=== PATIENT | female | born 1995 | race Hispanic/Latino ===

== ENCOUNTER 2019-05-21 03:43 | Emergency (ER) | payer OTHER ==
[~2019-05-21] VITALS: Ht 160 cm; Wt 88.5 kg
[2019-05-21] MEDS ORDERED: SODIUM CHLORIDE 0.9% 1000ML 1,000 ML IV STA (03:54)
[2019-05-21] MEDS ORDERED: PROMETHAZINE 25MG/ NS 50ML (IV) IV ONE (04:00)
[2019-05-21] MEDS ORDERED: KETOROLAC TROMETHAMINE 30 MG/ML VIAL IV ONE (04:00)
[2019-05-21] MEDS ORDERED: FAMOTIDINE 20 MG/2 ML VIAL IV ONE (04:00)
[2019-05-21] MEDS ORDERED: PROMETHAZINE HCL (IM) 25 MG/ML VIAL ONE (04:06)
[2019-05-21] MEDS ORDERED: SODIUM CHLORIDE 0.9% 1000ML 1,000 ML ONE (04:07)
[2019-05-21] MEDS ORDERED: SODIUM CHLORIDE 0.9% 50ML 50 ML ONE (04:15)
[2019-05-21] MEDS ORDERED: IOPAMIDOL 370 MG/ML 200 ML INFUS..BTL INJ ONE (04:15)
--- NOTE | 2019-05-21 05:15 | Diagnostic Imaging Report ---
EXAM: CT Abdomen and Pelvis WITH contrast INDICATION: Upper abdominal pain. ^[id number] ^[id number] COMPARISON: None. TECHNIQUE: Abdomen and pelvis were scanned utilizing a multidetector helical scanner from the lung base to the pubic symphysis after administration of IV contrast. Coronal and sagittal reformations were obtained. Dose modulation, iterative reconstruction, and/or weight based adjustment of the mA/kV was utilized to reduce the radiation dose to as low as reasonably achievable. Routine protocol was performed. Scan was performed when during portal venous phase. IV CONTRAST: 100 mL of Isovue-370 ORAL CONTRAST: None COMPLICATIONS: None RADIATION DOSE: Total DLP: 816.93 mGy*cm Estimated effective dose: (DLP x 0.015 x size factor) mSv CTDIvol has been reviewed. It is below the limits set by the Radiation Protocol Committee (RPC). FINDINGS: LINES and TUBES: None. LOWER THORAX: Unremarkable HEPATOBILIARY: No focal hepatic lesions. No biliary ductal dilation. GALLBLADDER: Questionable tiny dependent gallstones or sludge (series 301, image 39) No wall thickening. SPLEEN: No splenomegaly. PANCREAS: No focal masses or ductal dilatation. ADRENALS: No adrenal nodules KIDNEYS/URETERS: Kidneys enhance symmetrically. Atrophic right kidney. Multifocal areas of right renal and left superior pole cortical thinning/scarring. No hydronephrosis. Mildly distended bilateral renal fibrosis, right greater than left. Mild right urothelial enhancement. No renal stones. GI TRACT: No abnormal distention, wall thickening, or evidence of bowel obstruction. Appendix is normal. PELVIC ORGANS/BLADDER: Unremarkable. LYMPH NODES: No lymphadenopathy. VESSELS: Unremarkable. PERITONEUM / RETROPERITONEUM: No free air or fluid. BONES: Unremarkable. SOFT TISSUES: Unremarkable. IMPRESSION: 1. 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 Mild right urothelial enhancement. Urinary tract infection cannot be excluded. Otherwise, no acute inflammatory process in the abdomen/pelvis. 2. Left renal superior pole areas of cortical scarring. 3. Suspected cholelithiasis without CT evidence of cholecystitis. Signed by: Dr. Popeye Alcocer MD on 05/21/2019 5:12 AM
[2019-05-21 05:36] VITALS: BP 128/68
== END 2019-05-21 05:39 | disposition home or self-care (01) ==
LOC: FSED 03:43
DX: R10.11 Right upper quadrant pain (principal); R10.12 Left upper quadrant pain; N30.90 Cystitis, unspecified without hematuria; K80.70 Calculus of gallbladder and bile duct without cholecystitis without obstruction; K29.00 Acute gastritis without bleeding
CPT/HCPCS: 74177; 80053; 81003; 81025; 85025; 96374; 96375; 96376; 99284; J1885; J2550; J7030; Q9967

== ENCOUNTER 2020-02-14 09:10 | Emergency (ER) | payer OTHER ==
[~2020-02-14] VITALS: Ht 157.5 cm; Wt 81.6 kg
[2020-02-14] MEDS ORDERED: LIDOCAINE HCL 1% LOCAL INJ 20 ML VIAL ONE (09:41)
--- NOTE | 2020-02-14 09:41 | Emergency Department Note ---
History of Present Illnes History of Present Illness History of Present Illness This is a 24 year old female PRESENTS to the ED for retained FB in r earlobe. Historian: Patient Arrival Mode: Car Onset (how long ago): hour(s) (4) Severity: mild Onset quality: sudden Duration (how long): hour(s) (4) Timing of current episode: constant Progression: unchanged Chronicity: new Context: Denies recent illness, Denies recent surgery, Denies recent immobilization, Denies recent travel, Denies trauma/injury, Denies new medications, Denies hx of DVT/PE, Denies non-compliance w/ medications, Denies other Associated symptoms: Denies denies other symptoms, Denies confusion, Denies chest pain, Denies cough, Denies diaphoresis, Denies fever/chills, Denies headaches, Denies loss of appetite, Denies malaise, Denies nausea/vomiting, Denies rash, Denies seizure, Denies shortness of breath, Denies syncope, Denies weakness, Denies other Past Medical/Family History Physician Review I have reviewed the patient's past medical and family history. Any updates have been documented here. Past Medical History Recent Fever: No Clinical Suspicion of Infectio: No New/Unexplained Change in Ment: No Past Medical History: None Past Surgical History: None Social History Smoking Cessation: Never Smoker Alcohol Use: None Any Illegal Drug Use: No Other Last Tetanus: utd Review of Systems Review of Systems Constitutional: Reports no symptoms EENTM: Reports ear pain Cardiovascular: Reports no symptoms Respiratory: Reports no symptoms Gastrointestinal: Reports no symptoms Genitourinary: Reports no symptoms Musculoskeletal: Reports no symptoms Integumentary: Reports no symptoms Neurological: Reports no symptoms Psychological: Reports no symptoms Endocrine: Reports no symptoms Hematological/Lymphatic: Reports no symptoms Physical Exam Related Data Allergies: Coded Allergies: No Known Allergies (Unverified , 05/21/19) Vital signs reviewed: Yes Physical Exam CONSTITUTIONAL Constitutional: Present well-developed, Present well-nourished HENT HENT: Present normocephalic, Present atraumatic, Present oropharynx clear/moist, Present nose normal HENT L/R: Present left ext ear normal, Present right ext ear normal EYES Eyes: Reports PERRL, Reports conjunctivae normal NECK Neck: Present ROM normal PULMONARY Pulmonary: Present effort normal, Present breath sounds normal CARDIOVASCULAR Cardiovascular: Present regular rhythm, Present heart sounds normal, Present capillary refill normal, Present normal rate GASTROINTESTINAL Abdominal: Present soft, Present nontender, Present bowel sounds normal GENITOURINARY Genitourinary: Present exam deferred SKIN Skin: Present warm, Present dry MUSCULOSKELETAL Musculoskeletal: Present ROM normal NEUROLOGICAL Neurological: Present alert, Present oriented x 3, Present no gross motor or sensory deficits PSYCHOLOGICAL Psychological: Present mood/affect normal, Present judgement normal Procedures Foreign Body Site: right, other (ear lobe lobule) Description: other (nancy earring) Technique: manual removal Confirmed by: direct visualization Complications: none Post procedure exame: awake, alert Neurovascular: normal distal pulse Additional comments R ear lobule was numbed at the piercing site. Nancy earring head was pushed throught the ingress hole and removed without incident. Patient tolerated procedure well Assessment & Plan Medical Decision Making MDM Diff Dx : ear infection lobe, retained FB Assessment & Plan Final Impression: (1) Foreign body of right ear lobe Depart Disposition: HOME, SELF-CARE JOHN OLMSTEAD DO Feb 14, 2020 09:40
--- OUTSIDE RECORDS SUMMARY | 2020-02-14 09:51 | XMS REPORT | Continuity of Care Document ---
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 Role Phone [facility] [employer] Unavailable Un available Problems Problem Status Onset Date Classification Date Reported Comments Source ABD PAIN Active 07/17/2019 [facility] CHOLECYSTITIS Active 07/17/2019 [facility] Discharge Diagnosis: Chest pain at rest 02/02/2015 02/05/2015 [facility] ABDOMINAL PAIN Active 02/02/2015 [facility] Simple obesity (disorder) Acti ve Problem [facility] Group Medications Medication Details Route Status Patient Instructions Ordering Provider Order Date Source Hydralazine 10 mg, Route: IVP, Q20Min, Dosing Weight 81.818, kg, PRN Elevated BP, Start date: 07/18/19 16:59:00 PROJECT ADMINISTRATOR, Duration: 2 doses or times, Stop date: Limited # of times Inactive 07/18/2019 [facility] Labetalol 10 mg, Route: IVP, Q 5Min, Dosing Weight 81.818, kg, PRN Elevated BP, Start date: 07/18/19 16:59:00 PROJECT ADMINISTRATOR, Duration: 5 doses or times, Stop date: Limited # of times Inactive 07/18/2019 [facility] Metoprolol 1 mg, Route: IVP, Q 5Min, Dosing Weight 81.818, kg, PRN Other -See Comment, Start date: 07/18/19 16:59:00 PROJECT ADMINISTRATOR, Duration: 5 doses or times, Stop date: Limited # of times Inactive 07/18/2019 [facility] Ketorolac 30 mg, Route: IVP, O NCE, Dosing Weight 81.818, kg, Start date: 07/18/19 16:59:00 PROJECT ADMINISTRATOR, Stop date: 07/18/19 16:59:00 PROJECT ADMINISTRATOR Inactive 07/18/2019 [facility] Acetaminophen 1,000 mg, Route: IVPB, Drug form: INJ, ONCE, Dosing Weight 81.818, kg, PRN Pain Score 1-3, Start date: 07/18/19 16:59:00 PROJECT ADMINISTRATOR Inactive 07/18/2019 [facility] Oxycodone Hydrochloride 5 MG Oral Tablet 5 mg, Route: PO, Drug form: TAB, Q4H, Dosing Weight 81.818, kg, PRN Pain Score 4-6, Start date: 07/18/19 16:59:00 PROJECT ADMINISTRATOR, Duration: 30 day, Stop date: 08/17/19 16:58:00 PROJECT ADMINISTRATOR Inactive 07/18/2019 [facility] Morphine 2 mg, Route: IVP, Q5M in, Dosing Weight 81.818, kg, PRN Pain Score 4-6, Start date: 07/18/19 16:59:00 PROJECT ADMINISTRATOR, Duration: 5 doses or times, Stop date: Limited # of times Inactive 07/18/2019 [facility] Fentanyl 25 microgram, Route: IVP, Q5Min, Dosing Weight 81.818, kg, PRN Pain Score 4-6, Priority: Routine, Start date: 07/18/19 16:59:00 PROJECT ADMINISTRATOR, Duration: 4 doses or times, Stop date: Limited # of times Inactive 07/18/2019 [facility] Hydromorphone 0.5 mg, Route: I COTTON INSPECTOR, Q5Min, Dosing Weight 81.818, kg, PRN Pain Score 7-10, Start date: 07/18/19 16:59:00 PROJECT ADMINISTRATOR, Duration: 4 doses or times, Stop date: Limited # of times Inactive 07/18/2019 [facility] Flumazenil 0.2 mg, Route: IVP, PRN, Dosing Weight 81.818, kg, PRN Benzodiazepine Reversal, Initial dose, Start date: 07/18/19 16:59:00 PROJECT ADMINISTRATOR, Duration: 30 day, Stop date: 08/17/19 16:58:00 PROJECT ADMINISTRATOR Inactive 07/18/2019 [facility] Naloxone 0.4 mg, Route: IVP, Q 2MIN, Dosing Weight 81.818, kg, PRN Narcotic Reversal, Start date: 07/18/19 16:59:00 PROJECT ADMINISTRATOR, Duration: 8 doses or times, Stop date: Limited # of times Inactive 07/18/2019 [facility] Ondansetron 4 mg, Route: IVP, ONCE, Dosing Weight 81.818, kg, PRN Nausea & Vomiting, Start date: 07/18/19 16:59:00 PROJECT ADMINISTRATOR Inactive 07/18/2019 [facility] Calcium Chloride 0.0014 MEQ/ML / Potassi um Chloride 0.004 MEQ/ML / Sodium Chloride 0.103 MEQ/ML / Sodium Lactate 0.028 MEQ/ML Injectable Solution 1,000 mL, Rate: 75 ml/hr, Infuse over: 1 3.3 hr, Route: IV, Dosing Weight 81.818 kg, Total Volume: 1,000, Start date: 07/18/19 14:26:00 PROJECT ADMINISTRATOR, Duration: 1 day, Stop date: 07/19/19 14:25:00 PROJECT ADMINISTRATOR, 1.92, m2, 0 Inactive 07/18/2019 [facility] tramadol hydrochloride 50 MG Oral Tablet 100 mg = 2 tab, PO, Q8H, X 5 day, # 30 tab, 0 Refill(s) Active 07/18/2019 [facility] gabapentin 300 MG Oral Capsule 300 mg = 1 cap, PO, TID, # 42 cap, 0 Refill(s), Pharmacy: [facility] #[id number] Active 07/18/2019 [facility] Zosyn Notes: (Same as: Zosyn) Dosing based on Piperacillin component MEDICATION WASTE Product Size: 3375 mg Product Wasted: ___ mg Inactive 07/18/2019 [facility] piperacillin-tazobactam + Sodium Chlorid e 0.9% IV 100 mL Notes: (Same as: Zosyn) Dosing based on Piperacillin component MEDICATION WASTE Product Size: 3375 mg Product Wasted: ___ mg Inactive 07/18/2019 [facility] piperacillin-tazobactam + Sodium Chlorid e 0.9% IV 100 mL Notes: (Same as: Zosyn) Dosing based on Piperacillin component MEDICATION WASTE Product Size: 3375 mg Product Wasted: ___ mg Inactive 07/18/2019 [facility] Dextrose 50% Syringe (D50W) 12 .5 gm, 25 mL, Route: IVP, Drug Form: INJ, Dosing Weight 81.818, kg, PRN, PRN Blood Glucose Results, Start date: 07/17/19 18:24:00 PROJECT ADMINISTRATOR, Duration: 30 day, Stop date: 08/16/19 18:23:00 PROJECT ADMINISTRATOR, 0 No Longer Active 07/18/2019 [facility] Glucagon 1 mg, Route: IM, Drug form: PDR/INJ, PRN, Dosing Weight 81.818, kg, PRN Blood Glucose Results, Start date: 07/17/19 18:24:00 PROJECT ADMINISTRATOR, Duration: 30 day, Stop date: 08/16/19 18:23:00 PROJECT ADMINISTRATOR, 0 No Longer Active 07/18/2019 [facility] Ondansetron Notes: (Same as: Bulmaro tucker) MEDICATION WASTE Product Size: 4 mg Product Wasted: ___ mg No Longer Active 07/18/2019 [facility] Melatonin Notes: (Same as: Denita atonin) No Longer Active 07/18/2019 [facility] Acetaminophen Notes: Do not ex ceed 4 gm/day. (Same as: Tylenol) No Longer Active 07/18/2019 [facility] Lactated Ringers IV 1,000 mL 1 ,000 mL, Rate: 75 ml/hr, Infuse over: 13.3 hr, Route: IV, Dosing Weight 81.818 kg, Total Volume: 1,000, Start date: 07/17/19 18:24:00 PROJECT ADMINISTRATOR, Duration: 30 day, Stop date: 08/16/19 18:23:00 PROJECT ADMINISTRATOR, 1.92, m2, 0 No Longer Active 07/18/2019 [facility] Saline Flush 0.9% Notes: (Same as: BD Posiflush) No Longer Active 07/18/2019 [facility] Morphine Notes: (Same as:MORPh ine Sulfate) No Longer Active 07/18/2019 [facility] Piperacillin / tazobactam Note s: (Same as: Zosyn) Dosing based on Piperacillin component MEDICATION WASTE Product Size: 3375 mg Product Wasted: ___ mg Inactive 07/18/2019 [facility] Morphine Notes: (Same as:MORPh ine Sulfate) Inactive 07/17/2019 [facility] Sodium Chloride 0.9% (Bolus) IV 1,000 mL, 1000 ml/hr, Infuse Over: 1 hr, Route: IV, 1,000, Drug form: INJ, ONCE, Priority: STAT, Dosing Weight 81.818 kg, Start date: 07/17/19 17:32:00 PROJECT ADMINISTRATOR, Stop date: 07/17/19 17:32:00 PROJECT ADMINISTRATOR, 0 Inactive 07/17/2019 [facility] Ondansetron Notes: (Same as: Z ofran) MEDICATION WASTE Product Size: 4 mg Product Wasted: ___ mg Inactive 07/17/2019 [facility] Cyclobenzaprine hydrochloride 10 MG Oral Tablet [Flexeril] 10 mg, PO, TID, PRN Muscle Spasm, X 10 d ay, # 30 tab, 0 Refill(s) Active 02/03/2015 [facility] tramadol hydrochloride 50 MG Oral Tablet [Ultram] 50 mg = 1 tab, PO, Q6H, PRN pain, X 4 day, # 16 tab, 0 Refill(s) Active 02/03/2015 [facility] ibuprofen 800 mg oral tablet S pecial Instructions: Take with food Active 02/03/2015 [facility] Ibuprofen 800 mg, Route: PO, D rug form: TAB, ONCE, Dosing Weight 64.545, kg, Priority: STAT, Start date: 02/02/15 21:10:00, Stop date: 02/02/15 21:10:00 Inactive 02/03/2015 [facility] Acetaminophen 325 MG / Hydrocodone Peter trate 5 MG Oral Tablet 1 tab, Route: PO, Dosing Weight 64.545, kg, ONCE, STAT, Start date: 02/02/15 21:10:00, Stop date: 02/02/15 21:10:00 Inactive 02/03/2015 [facility] Allergies, Adverse Reactions, Alerts No Known Medication Allergies Immunizations No Data Provided for This Section Results Order Name Results Value Reference Range Date Interpretation Comments Source CHEM PANEL Glucose Lvl 93 70 - 99 07/17/2019 [facility] CHEM PANEL BUN 11 7 - 22 07/17/2019 [facility] CHEM PANEL Creatinine Lvl 1.01 0.50 - 1.40 07/17/2019 [facility] CHEM PANEL Sodium Lvl 138 135 - 145 07/17/2019 [facility] CHEM PANEL Potassium Lvl 3.7 3.5 - 5.1 07/17/2019 [facility] CHEM PANEL Chloride Lvl 105 95 - 109 07/17/2019 [facility] CHEM PANEL CO2 27 24 - 32 07/17/2019 [facility] CHEM PANEL Calcium Lvl 9.9 8.5 - 10.5 07/17/2019 [facility] CHEM PANEL Total Protein 8.4 6.4 - 8.4 07/17/2019 [facility] CHEM PANEL Albumin Lvl 4.6 3.5 - 5.0 07/17/2019 [facility] CHEM PANEL ALT 22 0 - 65 07/17/2019 [facility] CHEM PANEL AST 18 0 - 37 07/17/2019 [facility] CHEM PANEL Alk Phos 74 39 - 136 07/17/2019 [facility] CHEM PANEL Bili Total 0.4 0.2 - 1.3 07/17/2019 [facility] CHEM PANEL AGAP 9.7 10.0 - 20.0 07/17/2019 [facility] CHEM PANEL B/C Ratio 11 6 - 25 07/17/2019 [facility] CHEM PANEL Globulin 3.8 2.7 - 4.2 07/17/2019 [facility] CHEM PANEL A/G Ratio 1.2 0.7 - 1.6 07/17/2019 [facility] CHEM PANEL eGFR 78 07/17/2019 Result Comment: The eGFR is calculated using the CKD-EPI formula. In most young, healthy individuals the eGFR will be >90 mL/min/1.73m2. The eGFR declines with age. An eGFR of 60-89 may be normal in some populations, particularly the elderly, for whom the CKD-EPI formula has not been extensively validated. Use of the eGFR is not recommended in the following populations:

Individuals with unstable creatinine concentrations, including patients and those with serious co-morbid conditions.

Patients with extremes in muscle mass or diet.

The data above are obtained from the National Kidney Disease Education Program (NKDEP) which additionally recommends that when the eGFR is used in patients with extremes of body mass index for purposes of drug dosing, the eGFR should be multiplied by the estimated BMI. [facility] CHEM PANEL Lipase Lvl 67 73 - 393 07/17/2019 [facility] ENDOCRINOLOGY S Preg Ne gative *NA* (07/17/19 3:01 PM) Negative 07/17/2019 [facility] HEMATOLOGY WBC 14.4 3.7 - 10.4 07/17/2019 [facility] HEMATOLOGY RBC 4.45 4.20 - 5.40 07/17/2019 [facility] HEMATOLOGY Hgb 13.9 12.0 - 16.0 07/17/2019 [facility] HEMATOLOGY Hct 41.3 36.0 - 48.0 07/17/2019 [facility] HEMATOLOGY MCV 92.7 80.0 - 98.0 07/17/2019 [facility] HEMATOLOGY MCH 31.1 27.0 - 31.0 07/17/2019 [facility] HEMATOLOGY MCHC 33.6 32.0 - 36.0 07/17/2019 [facility] HEMATOLOGY RDW 13.1 11.5 - 14.5 07/17/2019 [facility] HEMATOLOGY Platelet 298 133 - 450 07/17/2019 [facility] HEMATOLOGY MPV 9.8 7.4 - 10.4 07/17/2019 [facility] HEMATOLOGY Segs 81.5 45.0 - 75.0 07/17/2019 [facility] HEMATOLOGY Lymphocytes 11.4 20.0 - 40.0 07/17/2019 [facility] HEMATOLOGY Monocytes 6.3 2.0 - 12.0 07/17/2019 [facility] HEMATOLOGY Eosinophils 0.5 0.0 - 4.0 07/17/2019 [facility] HEMATOLOGY Basophils 0.3 0.0 - 1.0 07/17/2019 [facility] HEMATOLOGY Neutrophils # 11.7 1.5 - 8.1 07/17/2019 [facility] HEMATOLOGY Lymphocytes # 1.6 1.0 - 5.5 07/17/2019 [facility] HEMATOLOGY Monocytes # 0.9 0.0 - 0.8 07/17/2019 [facility] HEMATOLOGY Eosinophils # 0.1 0.0 - 0.5 07/17/2019 [facility] URINE AND STOOL UA Turbidity Clear (07/17/19 3:01 PM) Clear 07/17/2019 [facility] URINE AND STOOL UA Spec Grav 1.006 <=1.030 07/17/2019 [facility] URINE AND STOOL UA pH 6.0 5.0 - 8.0 07/17/2019 [facility] URINE AND STOOL UA Protein Negative mg/dL Negative mg/dL 07/17/2019 [facility] URINE AND STOOL UA Glucose Negative mg/dL Negative mg/dL 07/17/2019 [facility] URINE AND STOOL UA Ketones Trace mg/dL Negative mg/dL 07/17/2019 [facility] URINE AND STOOL UA Bili Negative *NA* (07/17/19 3:01 PM) Negative 07/17/2019 [facility] URINE AND STOOL UA Blood Large *ABN* (07/17/19 3:01 PM) Negative 07/17/2019 [facility] URINE AND STOOL UA Nitrite Negative (07/17/19 3:01 PM) Negative 07/17/2019 [facility] URINE AND STOOL UA Leuk Est Negative (07/17/19 3:01 PM) Negative 07/17/2019 [facility] URINE AND STOOL UA Sq Epi Occasional /LPF Few /LPF 07/17/2019 [facility] URINE AND STOOL UA WBC <1 0 - 5 07/17/2019 [facility] URINE AND STOOL UA RBC 21 0 - 2 07/17/2019 [facility] URINE AND STOOL UA Bacteria Few /HPF None Seen /HPF 07/17/2019 [facility] URINE AND STOOL UA Color Ltyellow 07/17/2019 [facility] URINE AND STOOL UA Urobilinogen <=1.0 mg/dL 0.1 - 1.0 07/17/2019 [facility] Pathology Reports No Data Provided for This Section Diagnostic Reports Report Value Date Source Abdomen RUQ US PROCEDURE INFOR MATION: Exam: US Abdomen Limited, Right Upper Quadrant Exam date and time: 07/17/2019 4:04 PM Age: 24 years old Clinical indication: Pain; Additional info: /ruq pain TECHNIQUE: Imaging protocol: Real-time ultrasound of the abdomen with image documentation. Examination was focused on the right upper quadrant. COMPARISON: No relevant prior studies available. FINDINGS: LIVER: The visualized liver shows normal contour, size, and morphology with normal parenchymal echo texture. Common bile duct: The intrahepatic and extrahepatic bile ducts are not dilated with the common bile duct measuring 4.7 mm. The distal common bile duct is not well seen. GALLBLADDER: Echogenic, immobile, shadowing gallstone at the level of the gallbladder neck. Layering hyperechoic material within the gallbladder lumen, possibly sludge. Gallbladder wall is borderline thickened at 3 0.5 mm. No pericholecystic fluid. PANCREAS: The visualized portions of the pancreas appear unremarkable. RIGHT KIDNEY: The right kidney measures 9.2 x 4.3 x 3.9 cm and is unremarkable without hydronephrosis. INTRAPERITONEAL SPACE: There is no abdominal ascites. IMPRESSION: Immobile gallstone lodged at the level of the gallbladder neck. Also possible mild gallbladder sludge. Borderline gallbladder wall thickening. If further evaluation is clinically required, can obtain nuclear medicine HIDA scan. Adam Zimmer MD On 07/17/2019 17:03:51; [id number] 07/17/2019 [facility] Chest 2 views DX EXAM: Chest 2 views HISTORY: Chest pain. COMPARISON: None. TECHNIQUE: Frontal and lateral views of the chest. FINDINGS: Heart size is upper normal. The lungs are clear. No pleural effusion. SL: 12 02/02/2015 [facility] Consultation Notes No Data Provided for This Section Discharge Summaries No Data Provided for This Section History and Physicals No Data Provided for This Section Vital Signs Vital Sign Value Date Comments Source Systolic (mm Hg) 124 08/02/[facility] Diastolic (mm Hg) 85 08/02/2019 [facility] Heart Rate 99 08/02/2019 [facility] Temperature Oral (F) 98.2 F 08/02/2019 [facility] Height 157.48 cm 08/02/2019 [facility] Weight 82.784 08/02/2019 [facility] BMI Calculated 33.38 08/02/2019 [facility] Heart Rate 76 07/19/2019 [facility] Systolic (mm Hg) 132 07/19/2019 [facility] Diastolic (mm Hg) 86 07/19/2019 [facility] Heart Rate 84 07/19/2019 [facility] Systolic (mm Hg) 132 07/19/2019 [facility] Diastolic (mm Hg) 92 07/19/2019 [facility] Heart Rate 77 07/19/2019 [facility] Systolic (mm Hg) 128 07/19/2019 [facility] Diastolic (mm Hg) 82 07/19/2019 [facility] Respitory Rate 16 07/19/2019 [facility] Temperature Oral (F) 98.1 F 07/19/2019 [facility] Respitory Rate 16 07/18/2019 [facility] Respitory Rate 16 07/18/2019 [facility] Temperature Oral (F) 98.3 F 07/18/2019 [facility] Temperature Oral (F) 97.6 F 07/18/2019 [facility] Height 157.48 cm 07/17/2019 [facility] BMI Calculated 32.99 07/17/2019 [facility] Weight 81.818 07/17/2019 [facility] Heart Rate 53 02/03/2015 [facility] Temperature Oral (F) 97.8 F 02/03/2015 [facility] Systolic (mm Hg) 111 02/03/2015 [facility] Diastolic (mm Hg) 69 02/03/2015 [facility] Respitory Rate 17 02/03/2015 [facility] Diastolic (mm Hg) 75 02/03/2015 [facility] Systolic (mm Hg) 124 02/03/2015 [facility] Respitory Rate 18 02/03/2015 [facility] Heart Rate 71 02/03/2015 [facility] Temperature Oral (F) 98.2 F 02/03/2015 [facility] Weight 64.545 02/03/2015 [facility] BMI Calculated 26.03 02/03/2015 [facility] Height 157.48 cm 02/03/2015 [facility] Systolic (mm Hg) 131 02/03/2015 [facility] Diastolic (mm Hg) 80 02/03/2015 [facility] Heart Rate 74 02/03/2015 [facility] Respitory Rate 18 02/03/2015 [facility] Temperature Oral (F) 98.3 F 02/03/2015 [facility] Encounters Location Location Details Encounter Type Encounter Number Reason For Visit Attending Provider ADM Date DC Date Status Source [facility] [id number] Cyril Che 02/03/2015 02/03/2015 [facility] Observation [id number] Julia Alawadi 07/17/2019 07/19/2019 [facility] Outpatient [id number] Julia Alawadi 07/18/2019 Active [facility] Outpatient [id number] Julia Alawadi 08/02/2019 [facility] General Surgery [facility] [place] [facility] [id number] Julia Alawadi 08/02/2019 08/03/2019 [facility] Procedures Procedure Code Date Perfomer Comments Source Laparoscopic cholecystectomy 4 [id number] 07/21/2019 [facility] Assessment and Plan Assessment and Plan Date Source Extracted from:Title: [facility] Hospitalist Eduar robles Note Author: Jeannette Cunningham MD Date: 07/18/19 [facility] Hospitalist Progress Note Code Status: None Specified=FULL CODE RFC: Medical management Subjective: Pain controlled Plan for surgery later this evening Objective: Vitals and Temp: Vitals Tmp(F) Pulse BP RR SpO2 FIO2 07/18 11:28 98.3 115 126/78 17 100 --- 07/18 07:53 97.6 91 113/73 1 7 100 --- 07/18 02:56 97.7 102 103/67 16 97 --- 07/17 23:19 97.6 80 107/69 1 5 97 --- 07/17 19:08 97.7 72 115/75 1 6 97 --- 24 Hr Tmax: 98.3F (36.83c) at 07/18 11:2 8 Vital Signs are the last 5 in the past 48 hours. Physical Exam General: Awake, alert, oriented x 3, NAD HEENT: PERRLA, EOMI. Heart: RRR, normal S1, S2. No murmurs, rubs, gallops Lungs: Clear to auscultation bilaterally. Symmetric chest wall expansion. Abdomen: Soft, non-tender to palpation, non-distended. Bowel sound present in all 4 quadrants. Lines, Tubes, and Drains: 07/17/2019 18:24 Peripheral Lines: Antec ubital Left 20 gauge Over the needle catheter I&O Record In Out Bal 07/18 24hr Tot 100 0 100 07/17 24hr Tot 1200 0 1200 I/O Intake Output Balance 07/18/2019 7a-3p 80.00 0.00 80.00 As of 14:07 3p-11p 20.00 0.00 20.00 11p-7a 0.00 0.00 0.00 Totals 100.00 0.00 100.00 07/17/2019 7a-3p 0.00 0.00 0.00 3p-11p 1100.00 0.00 1100.00 11p-7a 100.00 0.00 100.00 Totals 1200.00 0.00 1200.00 07/16/2019 7a-3p 0.00 0.00 0.00 3p-11p 0.00 0.00 0.00 11p-7a 0.00 0.00 0.00 Totals 0.00 0.00 0.00 Medications (16) Active Scheduled Meds (1): 07/18/19 piperacillin-tazobactam + Sodiu m Chloride 0.9% IV 100 mL (Zosyn + Sodium Chloride 0.9% IV 100 mL) 3.375 gm IV [id number] 25 ml/hr Unscheduled Meds: None PRN Meds (8): 07/17/19 Dextrose 50% in Water IV (Dextr ose 50% Syringe (D50W)) 12.5 gm IVP PRN 07/17/19 Dextrose 50% in Water IV (Dextr ose 50% Syringe (D50W)) 25 gm IVP PRN 07/17/19 acetaminophen 650 mg PO Q4H 07/17/19 glucagon 1 mg IM PRN 07/17/19 melatonin 3 mg PO Bedtime 07/17/19 morphine Sulfate 2 mg IVP Q4H 07/17/19 ondansetron 4 mg IVP Q8H 07/17/19 sodium chloride (Saline Flush 0 .9%) 10 ml IVP PRN One Time Meds (6): 07/17/19 (Completed) Sodium Chloride 0. 9% IV (Sodium Chloride 0.9% (Bolus) IV) 1,000 mL IV ONCE 1000 ml/hr 07/17/19 (Completed) morphine Sulfate 4 mg IVP ONCE 07/17/19 (Completed) ondansetron 4 mg I COTTON INSPECTOR ONCE 07/17/19 (Deleted) piperacillin-tazobac justice + Sodium Chloride 0.9% IV 100 mL 3.375 gm IVPB ONCE 200 ml/hr 07/17/19 (Deleted) piperacillin-tazobac justice + Sodium Chloride 0.9% IV 100 mL 3.375 gm IVPB ONCE 200 ml/hr 07/17/19 (Completed) piperacillin-tazob actam + Sodium Chloride 0.9% IV 100 mL 3.375 gm IVPB ONCE 200 ml/hr Continuous Infusions (1): 07/17/19 Lactated Ringers Injection IV 1 ,000 mL (Lactated Ringers IV 1,000 mL) 1,000 mL 75 ml/hr Labs: Hct: 41.3 % (07/17/19 15:01:00) Hgb: 13.9 g/dL (07/17/19 15:01:00) MCH: 31.1 pg High (07/17/19 15:01:00) MCHC: 33.6 g/dL (07/17/19 15:01:00) MCV: 92.7 fL (07/17/19 15:01:00) MPV: 9.8 fL (07/17/19 15:01:00) Platelet: 298 K/CMM (07/17/19 15:01:00) RBC: 4.45 M/CMM (07/17/19 15:01:00) RDW: 13.1 % (07/17/19 15:01:00) WBC: 14.4 K/CMM High (07/17/19 15:01:00) CO2: 27 mEq/L (07/17/19 15:01:00) Chloride Lvl: 105 mEq/L (07/17/19 15:01:00) Sodium Lvl: 138 mEq/L (07/17/19 15:01:00) Glucose Lvl: 93 mg/dL (07/17/19 15:01:00) Calcium Lvl: 9.9 mg/dL (07/17/19 15:01:00) Potassium Lvl: 3.7 mEq/L (07/17/19 15:01:00) BUN: 11 mg/dL (07/17/19 15:01:00) AGAP: 9.7 mEq/L Low (07/17/19 15:01:00) Creatinine Lvl: 1.01 mg/dL (07/17/19 15:01:00) Imaging: Reviewed Assessment/Plan: 1. Acute cholecystitis Plan: -plan for surgery later today -cont pain control, fluids -intermittently tachycardic, likely 2/2 pain/anxiety -pt denies other medical problems Thank you for the consult, please call hospitalist with quesstions Jeannette Cunningham MD Hospitalist [facility] Extracted from:Title: Hospitalist Consult Note Author: Estephanie Yi MD Date: 07/17/19 24 yo F with obesity, cholelithiasis who presented to the ED withsevere upper abdominal pain that began last night. Acute cholecystitis - npo after midnight for surgical interv ention - will continue empiric zosyn - morphine and zofran prn, gentle IVF Thank you for this consult. Please call if you have any questions. We will continue to follow along with you. Estephanie Yi MD [facility] Hospitalist 07/19/2019 [facility] Plan of Care No Data Provided for This Section Social History Social History Date Source Social History TypeResponse Alcohol Never Substance Abuse Use: None. Smoking Status Never smoker; Exposure to Tobacco Smoke None; Cigarette Smoking Last 365 Days No; Reg Smoking Cessation Counseling No entered on: 07/17/19 07/18/2019 [facility] Social History TypeResponse Alcohol Never Employment/School Status: Employed. Substance Abuse Use: None. Smoking Status Never smoker; Exposure to Tobacco Smoke None; Cigarette Smoking Last 365 Days No; Reg Smoking Cessation Counseling No entered on: 08/02/19 07/18/2019 [facility] Family History No Data Provided for This Section Advance Directives No Data Provided for This Section Functional Status No Data Provided for This Section
--- OUTSIDE RECORDS SUMMARY | 2020-02-14 09:51 | XMS REPORT | Continuity of Care Document ---
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 Role Phone NO, PCP PCP Unavailable Julia Gonzalez Attphys Shara KEITA Attphys Unavailable Tobias Che Attphys [phone] Julia Gonzalez Admphys Payers Payer Name Policy Type Policy Number Effective Date Expiration Date Amie Shannon o [id number] 2018 00:00:00 [facility] Problems Condition Name Condition Details Condition Category Status Onset Date Resolution Date Last Treatment Date Treating Clinician Comments Source ABD PAIN ABD PAIN Active 07/17/2019 [facility] Active 2019-07-17 00:00:00 2019-07-17 18:48:00 [facility] CHOLECYSTITIS CHOL ECYSTITIS Active 07/17/2019 [facility] Active 2019-07-17 00:00:00 2019-07-18 17:23:00 [facility] ABDOMINAL PAIN ABDO MISAEL PAIN Active 02/02/2015 [facility] Active 2015-02-02 00:00:00 2015-02-02 21:55:00 [facility] Simple obesity (disorder) Simp le obesity (disorder) Active Problem 08/05/2019 [facility] Problem Active 2019-08-05 01:08:06 [facility] Discharge Diagnosis: Chest pain at rest Discharge Diagnosis: Chest pain at rest 02/02/2015 02/05/2015 [facility] Problem 2015-02-02 05:00:00 2015-02-05 07:41:15 2015-02-05 07:41:15 [facility] Allergies, Adverse Reactions, Alerts This patient has no known allergies or adverse reactions. Social History Social Habit Start Date Stop Date Quantity Comments Source Social History 2019-07-18 02:53:29 2019-07-18 02:53:29 [facility] Medications Ordered Medication Name Filled Medication Name Start Date Stop Da te Current Medication? Ordering Clinician Indication Dosage Frequency Signature (SIG) Comments Components Source Hydralazine 2019-07-18 22:59:00 No 10 mg, Route: IVP, Q20Min, Dosing Weight 81.818, kg, PRN Elevated BP, Start date: 07/18/19 16:59:00 [employer] DRAFTSPERSON, Duration: 2 doses or times, Stop date: Limited # of times [facility] Labetalol 2019-07-18 22:59:00 No 10 mg, Route: IVP, Q5Min, Dosing Weight 81.818, kg, PRN Elevated BP, Start date: 07/18/19 16:59:00 [employer] DES[employer] DRAFTSPERSON, Duration: 5 doses or times, Stop date: Limited # of times [facility] Metoprolol 2019-07-18 22:59:00 No 1 mg, Route: IVP, Q5Min, Dosing Weight 81.818, kg, PRN Other -See Comment, Start date: 07/18/19 16:59:00 [employer] ENG[employer]ERING DES[employer] DRAFTSPERSON, Duration: 5 doses or times, Stop date: Limited # of times [facility] Ketorolac 2019-07-18 22:59:00 No 30 mg, Route: IVP, ONCE, Dosing Weight 81.818, kg, Start date: 07/18/19 16:59:00 [employer] DES[employer] DRAFTSPERSON, Stop date: 07/18/19 16:59:00 [employer] ENGINEERING DESIGN DRAFTSPERSON [facility] Acetaminophen 2019-07-18 22:59:00 No 1,000 mg, Route: IVPB, Drug form: INJ, ONCE, Dosing Weight 81.818, kg, PRN Pain Score 1-3, Start date: 07/18/19 16:59:00 [employer] ENG[employer]ER[employer] DES[employer] DRAFTSPERSON [facility] Oxycodone Hydrochloride 5 MG Oral Tablet 2019-07-18 22:59:00 No 5 mg, Route: PO, Drug form: TAB, Q4H, Dosing Weight 81.818, kg, PRN Pain Score 4- 6, Start date: 07/18/19 16:59:00 [employer] ENGINEERING DESIGN DRAFTSPERSON, Duration: 30 day, Stop date: 08/17/19 16:58:00 [employer] ENGINEERING DESIGN DRAFTSPERSON [facility] Morphine 2019-07-18 22:59:00 No 2 mg, Route: IVP, Q5Min, Dosing Weight 81.818, kg, PRN Pain Score 4-6, Start date: 07/18/19 16:59:00 [employer] ENG[employer]ER[employer] DES[employer] DRAFTSPERSON, Duration: 5 doses or times, Stop date: Limited # of times [facility] Fentanyl 2019-07-18 22:59:00 No 25 microgram, Route: IVP, Q5Min, Dosing Weight 81.818, kg, PRN Pain Score 4-6, Priority: Routine, Start date: 07/18/19 16:59:00 [employer] ENG[employer]ER[employer] DESIGN DRAFTSPERSON, Duration: 4 doses or times, Stop date: Limited # of times [facility] Hydromorphone 2019-07-18 22:59:00 No 0.5 mg, Route: IVP, Q5Min, Dosing Weight 81.818, kg, PRN Pain Score 7-10, Start date: 07/18/19 16:59:00 [employer] ENGINEER[employer] DESIGN DRAFTSPERSON, Duration: 4 doses or times, Stop date: Limited # of times [facility] Flumazenil 2019-07-18 22:59:00 No 0.2 mg, Route: IVP, PRN, Dosing Weight 81.818, kg, PRN Benzodiazepine Reversal, Initial dose, Start date: 07/18/19 16:59:00 [employer] ENG[employer]ER[employer] DES[employer] DRAFTSPERSON, Duration: 30 day, Stop date: 08/17/19 16:58:00 [employer]IV[employer] ENGINEERING DESIGN DRAFTSPERSON [facility] Naloxone 2019-07-18 22:59:00 No 0.4 mg, Route: IVP, Q2MIN, Dosing Weight 81.818, kg, PRN Narcotic Reversal, Start date: 07/18/19 16:59:00 [employer] ENG[employer]ER[employer] DESIGN DRAFTSPERSON, Duration: 8 doses or times, Stop date: Limited # of times [facility] Ondansetron 2019-07-18 22:59:00 No 4 mg, Route: IVP, ONCE, Dosing Weight 81.818, kg, PRN Nausea & Vomiting, Start date: 07/18/19 16:59:00 [employer] ENG[employer]ER[employer] DES[employer] DRAFTSPERSON [facility] Calcium Chloride 0.0014 MEQ/ML / Potassi um Chloride 0.004 MEQ/ML / Sodium Chloride 0.103 MEQ/ML / Sodium Lactate 0.028 MEQ/ML Injectable Solution 2019-07-18 20:26:00 No 1,000 mL, Rate: 75 ml/hr, Infuse over: 13.3 hr, Route: IV, Dosing Weight 81.818 kg, Total Volume: 1,000, Start date: 07/18/19 14:26:00 [employer] ENG[employer]ER[employer] DES[employer] DRAFTSPERSON, Duration: 1 day, Stop date: 07/19/19 14:25:00 [employer] ENGINEERING DESIGN DRAFTSPERSON, 1.92, m2, 0 Chon Bustos tramadol hydrochloride 50 MG Oral Tablet 2019-07-18 17:42:00 Yes 100 mg = 2 tab, PO, Q8H, X 5 day, # 30 tab, 0 Refill(s) Chon Bustos gabapentin 300 MG Oral Capsule 2019-07-18 17:42:00 Yes 300 mg = 1 cap, PO, TID, # 42 cap, 0 Refill(s), Pharmacy: [id number] Chon Bustos Zosyn 2019-07-18 09:00:00 No Notes: (Same as: Zosyn) Dosing based on Piperacillin component MEDICATION WASTE Product Size: 3375 mg Product Wasted: ___ mg Chon Bustos piperacillin-tazobactam + Sodium Chloride 0.9% IV 100 mL 2019-07-18 01:18:00 No Notes: (Same a s: Zosyn) Dosing based on Piperacillin component MEDICATION WASTE Product Size: 3375 mg Product Wasted: ___ mg Chon Akash piperacillin-tazobactam + Sodium Chloride 0.9% IV 100 mL 2019-07-18 01:16:00 No Notes: (Same a s: Zosyn) Dosing based on Piperacillin component MEDICATION WASTE Product Size: 3375 mg Product Wasted: ___ mg Chon Bustos Dextrose 50% Syringe (D50W) 2019-07-18 00:24:00 No 12.5 gm, 25 mL, Route: IVP, Drug Form: INJ, Dosing Weight 81.818, kg, PRN, PRN Blood Glucose Results, Start date: 07/17/19 18:24:00 [employer] ENG[employer]ERING DESIGN DRAFTSPERSON, Duration: 30 day, Stop date: 08/16/19 18:23:00 [employer]IV[employer] ENGINEERING DESIGN DRAFTSPERSON, 0 Chon Aaron n Glucagon 2019-07-18 00:24:00 No 1 mg, Route: IM, Drug form: PDR/INJ, PRN, Dosing Weight 81.818, kg, PRN Blood Glucose Results, Start date: 07/17/19 18:24:00 [employer] ENGINEERING DESIGN DRAFTSPERSON, Duration: 30 day, Stop date: 08/16/19 18:23:00 CIVIL ENGINEERING DESIGN DRAFTSPERSON, 0 [facility] Ondansetron 2019-07-18 00:24:00 No Notes: (Same as: Zofran) MEDICATION WASTE Product Size: 4 mg Product Wasted: ___ mg [facility] Melatonin 2019-07-18 00:24:00 No Notes: (Sa me as: Melatonin) [facility] Acetaminophen 2019-07-18 00:24:00 No Notes: Do not exceed 4 gm/day. (Same as: Tylenol) [facility] Lactated Ringers IV 1,000 mL 2019-07-18 00:24:00 No 1,000 mL, Rate: 75 ml/hr, Infuse over: 13.3 hr, Route: IV, Dosing Weight 81.818 kg, Total Volume: 1,000, Start date: 07/17/19 18:24:00 CIV[employer] ENGINEERING DESIGN DRAFTSPERSON, Duration: 30 day, Stop date: 08/16/19 18:23:00 CIVIL ENGINEERING DESIGN DRAFTSPERSON, 1.92, m2, 0 [facility] [place] Saline Flush 0.9% 2019-07-18 00:24:00 No Notes: (Same as: BD Posiflush) [facility] Morphine 2019-07-18 00:24:00 No Not es: (Same as:MORPhine Sulfate) [facility] Piperacillin / tazobactam 2019-07-18 00:13:00 No Notes: (Same as: Zosyn) Dosing based on Piperacillin component MEDICATION WASTE Product Size: 3375 mg Product Wasted: ___ mg [facility] [place] Morphine 2019-07-17 23:32:00 No Not es: (Same as:MORPhine Sulfate) [facility] Sodium Chloride 0.9% (Bolus) IV 2019-07-17 23:32:00 No 1,000 mL, 1000 ml/hr, Infuse Over: 1 hr, Route: IV, 1,000, Drug form: INJ, ONCE, Priority: STAT, Dosing Weight 81.818 kg, Start date: 07/17/19 17:32:00 [employer] ENGINEERING DESIGN DRAFTSPERSON, Stop date: 07/17/19 17:32:00 CIVIL ENGINEERING DESIGN DRAFTSPERSON, 0 [facility] n Ondansetron 2019-07-17 23:32:00 No Notes: (Same as: Tl) MEDICATION WASTE Product Size: 4 mg Product Wasted: ___ mg [facility] Ak[address] Cyclobenzaprine hydrochloride 10 MG Oral Tablet [Flexeril] 2015-02-03 03:45:00 Yes 10 mg, PO, TID, PRN Muscle Spasm, X 10 day, # 30 tab, 0 Refill(s) [facility] Ak[address] tramadol hydrochloride 50 MG Oral Tablet [Ultram] 2015-02-03 03:44:00 Yes 50 mg = 1 tab, PO, Q6H, PRN pain, X 4 day, # 16 tab, 0 Refill(s) [facility] [address] ibuprofen 800 mg oral tablet 2015-02-03 03:44:00 Yes Special Instructions: Take with food Chon lawler Ibuprofen 2015-02-03 02:10:00 No 800 mg, Route: PO, Drug form: TAB, ONCE, Dosing Weight 64.545, kg, Priority: STAT, Start date: 02/02/15 21:10:00, Stop date: 02/02/15 21:10:00 [facility] Gaudencio lawler Acetaminophen 325 MG / Hydrocodone Bitartrate 5 MG Oral Tabl et 2015-02-03 02:10:00 No 1 tab, Rou te: PO, Dosing Weight 64.545, kg, ONCE, STAT, Start date: 02/02/15 21:10:00, Stop date: 02/02/15 21:10:00 [facility] Vital Signs Vital Name Observation Time Observation Value Comments Source Systolic (mm Hg) 2019-08-02 16:21:00 Ammoncynthia Bustos Diastolic (mm Hg) 2019-08-02 16:21:00 [facility] orial [place] Heart Rate 2019-08-02 16:21:00 [facility] Temperature Oral (F) 2019-08-02 16:21:00 98.2 F [facility] Height 2019-08-02 16:21:00 157.48 cm [facility] Weight 2019-08-02 16:21:00 [facility] BMI Calculated 2019-08-02 16:21:00 Ruthori al [facility] Heart Rate 2019-07-19 03:15:00 [facility] Systolic (mm Hg) 2019-07-19 03:15:00 Ammon rial [place] Diastolic (mm Hg) 2019-07-19 03:15:00 [facility] [place] Heart Rate 2019-07-19 03:00:00 [facility] Systolic (mm Hg) 2019-07-19 03:00:00 Ammon rial [facility] Diastolic (mm Hg) 2019-07-19 03:00:00 [facility] Heart Rate 2019-07-19 02:30:00 [facility] [place] Systolic (mm Hg) 2019-07-19 02:30:00 Ammon rial [facility] Diastolic (mm Hg) 2019-07-19 02:30:00 [facility] [place] Respitory Rate 2019-07-19 01:00:00 [facility] Temperature Oral (F) 2019-07-19 01:00:00 98.1 F [facility] [place] Respitory Rate 2019-07-18 23:35:00 [facility] Respitory Rate 2019-07-18 23:20:00 [facility] Temperature Oral (F) 2019-07-18 17:28:00 98.3 F [facility] Temperature Oral (F) 2019-07-18 13:53:00 97.6 F [facility] Height 2019-07-17 20:53:00 157.48 cm [facility] [place] BMI Calculated 2019-07-17 20:53:00 [facility] [place] Weight 2019-07-17 20:53:00 [facility] [place] Heart Rate 2015-02-03 03:19:00 [facility] [place] Temperature Oral (F) 2015-02-03 03:19:00 97.8 F [facility] [place] Systolic (mm Hg) 2015-02-03 03:19:00 Ammon rial [facility] Diastolic (mm Hg) 2015-02-03 03:19:00 [facility] Respitory Rate 2015-02-03 03:19:00 [facility] Diastolic (mm Hg) 2015-02-03 02:18:00 [facility] [place] Systolic (mm Hg) 2015-02-03 02:18:00 Ammon rial [address] Respitory Rate 2015-02-03 02:18:00 [facility] [place] Heart Rate 2015-02-03 02:18:00 [facility] Temperature Oral (F) 2015-02-03 02:18:00 98.2 F [facility] [place] Weight 2015-02-03 01:46:00 [facility] [place] BMI Calculated 2015-02-03 01:46:00 [facility] [address] Height 2015-02-03 01:46:00 157.48 cm [facility] [place] Systolic (mm Hg) 2015-02-03 01:46:00 Ammon andrea [facility] Diastolic (mm Hg) 2015-02-03 01:46:00 [facility] [address] Heart Rate 2015-02-03 01:46:00 [facility] Respitory Rate 2015-02-03 01:46:00 [facility] [place] Temperature Oral (F) 2015-02-03 01:46:00 98.3 F [facility] [place] Procedures Procedure Date / Time Performed Performing Clinician [facility] e Laparoscopic cholecystectomy 2019-07-21 06:00:00 [facility] Encounters Start Date/Time End Date/Time Encounter Type Admission Type [facility] Care Department Encounter ID Source 2019-08-02 10:00:00 2019-08-02 23:59:59 Outpatient Jorge Gonzalez [facility] [id number] 2019-07-17 14:37:21 2019-07-18 22:36:00 Outpatient Jorge Gonzalez [facility] [id number] 2019-05-21 03:43:00 2019-05-21 05:39:00 Departed Emergency Room 1 ARLENE KEITAUYEN [facility] [id number] [facility] 2015-02-02 20:46:00 2015-02-02 22:56:00 Outpatient Wilmar Matta [facility] [id number] Results Test Description Test Time Test Comments Results Result Comments Source CHEM PANEL 2019-07-17 21:01:00 93 [facility] CHEM PANEL 2019-07-17 21:01:00 11 [facility] CHEM PANEL 2019-07-17 21:01:00 1.01 [facility] CHEM PANEL 2019-07-17 21:01:00 138 [facility] [place] CHEM PANEL 2019-07-17 21:01:00 3.7 [facility] CHEM PANEL 2019-07-17 21:01:00 105 [facility] [place] CHEM PANEL 2019-07-17 21:01:00 27 [facility] CHEM PANEL 2019-07-17 21:01:00 9.9 [facility] CHEM PANEL 2019-07-17 21:01:00 8.4 [facility] CHEM PANEL 2019-07-17 21:01:00 4.6 [facility] [place] CHEM PANEL 2019-07-17 21:01:00 22 [facility] CHEM PANEL 2019-07-17 21:01:00 18 [facility] [place] CHEM PANEL 2019-07-17 21:01:00 74 [facility] [address] CHEM PANEL 2019-07-17 21:01:00 0.4 [facility] [place] CHEM PANEL 2019-07-17 21:01:00 9.7 [facility] CHEM PANEL 2019-07-17 21:01:00 Test Item B/C Ratio (test code = B/C Ratio) 11 1 6-25 [facility] [id number]01:003.8[facility] 2019-07-17 21:01:00* Test Item Value Reference Range Interpretation Comments A/G Ratio (test code = A/G Ratio) 1.2 1 0.7-1.6 [facility] [id number] 21:01:0078[facility] 2019-07-17 21:01:0067[facility] C[id number] 21:01:00Negative *NA*(07/17/19 3:01 PM)[facility] KztffhfBOCDMZOAKA3859-29-72 21:01:0014.4[facility] GdorlymTNBZUJBXGB1042-76-25 21:01:004.45[facility] LmityykUSUKFWIKEQ9087-73-11 21:01:0013.9[facility] IdzfayeCRKYIGDABE1386-74-87 21:01:0041.3[facility] [place] LRTDZSVSHQ7544-16-15 21:01:0092.7[facility] PalpsgvLBXKNKYYOT0112-81-09 21:01:00* Test Item Value Reference Range Interpretation Comments MCH (test code = MCH) 31.1 pg 27.0-31.0 [facility] KhcpcmtHTAUVBVCWB6258-05-32 21:01:0033.6[facility] 2019-07-17 21:01:0013.1[facility] ZxhzajgKPWTYPXDRC3314-88-07 21:01:92659Coiiyeqn XelynhwHYHYQSHCSY2580-10-95 21:01:009.8[facility] TlcrkuwWYTKKQQXEB5512-71-39 21:01:0081.5[facility] NdmcykbGJALKVARZD2114-96-06 21:01:0011.4[facility] [place] CIGCNRFMMH5642-70-27 21:01:006.3[facility] YwezevaNKQFYKIOFX5154-18-93 21:01:000.5 [facility] CemjeynVRTXVNIHLO4492-44-69 21:01:000.3[facility] 2019-07-17 21:01:0011.7[facility] RbfrxlqCDESDONDQP3121-78-92 21:01:001.6[facility] LjhdmrhLJWVSIRWMR4428-78-48 21:01:000.9[facility] MjbmvdwPDIVDNANAC2059-87-73 21:01:000.1[facility] [id number] 21:01:00Clear (07/17/19 3:01 PM)[facility] [id number] 21:01:00* Test Item Value Reference Range Interpretation Comments UA Spec Grav (test code = UA Spec Grav) 1.006 1 [facility] [id number] 21:01:00* Test Item Value Reference Range Interpretation Comments UA pH (test code = UA pH) 6.0 1 5.0-8.0 [facility] [id number] 21:01:00Negative *NA*(07/17/19 3:01 PM) [facility] [id number] 21:01:00Large *ABN*(07/17/19 3:01 PM) [facility] [id number] 21:01:00Negative (07/17/19 3:01 PM) [facility] [id number] 21:01:00Negative (07/17/19 3:01 PM) [facility] [id number] 21:01:00<1[facility] [id number] 21:01:0021[facility]/PEL WITH CONTRAST-HOPD 2019-05-21 05:03:00 [facility] [address] [address] Patient Name: MARIAH BERRY MR #: [id number] : 1995 Age/Sex: 24/F Req #: [id number] Adm Physician: Ordered by: CAROL KEITA MD Report #: [id number] Location: [facility] Room/Bed: Procedure: [id number] HOP D/CT ABD/PEL WITH CONTRAST-HOPD Exam Date: 05/21/19 Exam Time: 439 REPORT STATUS: Sign ed EXAM: CT Abdomen and Pelvis WITH contrast INDICATION: Upper abdominal pain. [id number] COMPARISON: None. TECHNIQUE: Abdomen and pelvis were scanned utilizing a multidetector helical scanner from the lung base to the pubic symphysis after administration of IV contrast. Coronal and sagittal reformations were obtained. Dose modulation, iterative reconstruction, and/or weight based adjustment of the mA/kV was utilized to reduce the radiation dose to as low as reasonably achievable. Routine protocol was performed. Scan was performed when during portal venous phase. IV CONTRAST: 100 mL of I sovue-370 ORAL CONTRAST: None COMPLICATIONS: None R ADIATION DOSE: Total DLP: 816.93 mGy*cm Estimated effective dose: (DLP x 0.015 x size factor) mSv CTDIvol has been reviewed. It is below th e limits set by the Radiation Protocol Committee (RPC). FINDINGS: LI SHERRIE and TUBES: None. LOWER THORAX: Unremarkable HEPATOBILIARY: N o focal hepatic lesions. No biliary ductal dilation. GALLBLADDER: Question able tiny dependent gallstones or sludge (series 301, image 39) No wall thick ening. SPLEEN: No splenomegaly. PANCREAS: No focal masses or ductal d ilatation. ADRENALS: No adrenal nodules KIDNEYS/URETERS: Kidneys enhance symmetrically. Atrophic right kidney. Multifocal areas of right renal and left superior pole cortical thinning/scarring. No hydronephrosis. Mildly distended bilateral renal fibrosis, right greater than left. Mild right urothe lial enhancement. No renal stones. GI TRACT: No abnormal distention, wall thickening, or evidence of bowel obstruction. Appendix is normal. PELVIC ORGANS/BLADDER: Unremarkable. LYMPH NODES: No lymphadenopathy. VESSELS: Unremarkable. PERITONEUM / RETROPERITONEUM: No free air or fluid. BONES: Unremarkable. SOFT TISSUES: Unremarkable. IMPR ESSION: 1. 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 Mi ld right urothelial enhancement. Urinary tract infection cannot be excluded. O therwise, no acute inflammatory process in the abdomen/pelvis. 2. Left james l superior pole areas of cortical scarring. 3. Suspected cholelithiasis witho ut CT evidence of cholecystitis. Signed by: Dr. Popeye Aden MD on 019 5:12 AM Dictated By: POPEYE ADEN MD 1 Transcribed By: LISA on 05/21/19511 CO PY TO: CAROL KEITA MD
[2020-02-14] MEDS ORDERED: LIDOCAINE HCL 1% LOCAL INJ 20 ML VIAL INJ ONE (10:00)
== END 2020-02-14 09:51 | disposition home or self-care (01) ==
LOC: FSED 09:10
DX: S00.451A Superficial foreign body of right ear, initial encounter (principal)
CPT/HCPCS: 99282; J2001